=== PATIENT | female | born 1980 | race African-American/Black ===

== ENCOUNTER 2019-04-13 10:48 | Observation (INO) | payer MEDICAID, OTHER ==
[~2019-04-13] VITALS: Ht 172.7 cm; Wt 84.4 kg
[2019-04-13] MEDS ORDERED: LACTATED RINGERS 1,000 ML IV SCH (13:00)
[2019-04-13] MEDS ORDERED: TERBUTALINE SULFATE 1MG/ML VIAL SUBCUT PRN (13:00)
== END 2019-04-13 16:15 | disposition home or self-care (01) ==
LOC: 8 EST LDRP 10:48
PROVIDERS: ADMIT Obstetrics & Gynecology; ATTEND Obstetrics & Gynecology
DX: Z04.3 Encounter for examination and observation following other accident (principal); Z3A.29 29 weeks gestation of pregnancy
CPT/HCPCS: 76805; 76818; 96372; 99281; G0378; J3105; 96360; 96361

== ENCOUNTER 2019-05-24 11:33 | Observation (INO) | payer MEDICAID, OTHER ==
[~2019-05-24] VITALS: Ht 172.7 cm; Wt 89.8 kg
[2019-05-24] MEDS ORDERED: LACTATED RINGERS 1,000 ML IV SCH (12:45)
[2019-05-24] MEDS: LACTATED RINGERS 1,000 ML IV SCH ×3 (12:45→17:44)
[2019-05-24 13:23] LABS: CLARITY URINE CLEAR (CLEAR); COLOR URINE YELLOW (YELLOW); KETONES URINE NEGATIVE (NEGATIVE); LEUKOCYTE ESTERASE URINE NEGATIVE (NEGATIVE); NITRITE URINE NEGATIVE (NEGATIVE); OCCULT BLOOD URINE NEGATIVE (NEGATIVE); PH URINE 6.5 (4.5-8.0); PROTEIN URINE NEGATIVE (NEGATIVE); SPECIFIC GRAVITY URINE 1.002 (1.005-1.030); UROBILINOGEN URINE 0.2 E.U./dL (0.2-1.0)
[2019-05-24] MEDS ORDERED: BETAMETHASONE ACET/BETAMET 30 MG/5 ML VIAL IM ONE (15:00)
[2019-05-24] MEDS ORDERED: TERBUTALINE SULFATE 1MG/ML VIAL SUBCUT SCH (15:00)
[2019-05-24] MEDS ORDERED: BETAMETHASONE ACET/BETAMET 30 MG/5 ML VIAL IM SCH (15:00)
== END 2019-05-24 20:50 | disposition home or self-care (01) ==
LOC: 8 EST LDRP 11:33
PROVIDERS: ADMIT Obstetrics & Gynecology; ATTEND Obstetrics & Gynecology
DX: O62.9 Abnormality of forces of labor, unspecified (principal); O26.893 Other specified pregnancy related conditions, third trimester; R10.9 Unspecified abdominal pain; M54.9 Dorsalgia, unspecified; Z98.890 Other specified postprocedural states; Z3A.34 34 weeks gestation of pregnancy
CPT/HCPCS: 76805; 76815; 76818; 81003; 96372; 99281; G0378; J0702; J3105; J7120